=== PATIENT | male | born 1980 | race Caucasian/White ===

== ENCOUNTER 2022-11-11 12:17 | Emergency (ER) | payer MEDICAID ==
[~2022-11-11] VITALS: Ht 182.9 cm; Wt 90.7 kg
[2022-11-11 14:33] VITALS: BP 111/70; TEMP 98.2; O2SAT 98
== END 2022-11-11 14:00 | disposition home or self-care (01) ==
LOC: ER 12:19
DX: T40.411A Poisoning by fentanyl or fentanyl analogs, accidental (unintentional), initial encounter (principal); R41.82 Altered mental status, unspecified; Y92.89 Other specified places as the place of occurrence of the external cause

== ENCOUNTER 2023-02-10 10:43 | Emergency (ER) | payer MEDICAID ==
[~2023-02-10] VITALS: Ht 180.3 cm; Wt 90.7 kg
[2023-02-10] MEDS ORDERED: SULF1TAB48 PO (11:41)
[2023-02-10 12:10] VITALS: BP 105/73; TEMP 98.6; O2SAT 100
== END 2023-02-10 12:04 | disposition home or self-care (01) ==
LOC: ER 10:56
DX: T81.41XA Infection following a procedure, superficial incisional surgical site, initial encounter (principal)